=== PATIENT | male | born 1960 | race Hispanic/Latino ===

== ENCOUNTER 2017-08-25 12:22 | Inpatient (IN) | payer OTHER ==
[~2017-08-25] VITALS: Ht 180.3 cm; Wt 149.5 kg
[2017-08-25 13:19] LABS: BASOPHILS % (AUTO) 0.5 % (0.0-5.0); EOSINOPHILS % (AUTO) 2.3 % (0.0-8.0); HEMATOCRIT 50.5 % (42-54); INR 0.95 (0.85-1.15); LYMPHOCYTES % (AUTO) 25.7 % (21.0-51.0); MEAN CORPUSCULAR HEMOGLOBIN 31.2 pg (27.0-33.0); MEAN CORPUSCULAR HGB CONC 33.7 g/dL (32.0-36.0); MEAN CORPUSCULAR VOLUME 92.5 fL (79-99); MONOCYTES % (AUTO) 9.1 % (3.0-13.0); NEUTROPHILS % (AUTO) 62.4 % (40.0-77.0); NUCLEATED RED BLOOD CELLS 0.1 % (0.0-0.19); PARTIAL THROMBOPLASTIN TIME 26.6 SEC (26.3-35.5); PLATELET COUNT (AUTO) 171 K/uL (130-400); RED BLOOD CELL COUNT(AUTO) 5.46 MIL/uL (4.50-6.20); RED CELL DISTRIBUTION WIDTH 13.9 % (11.0-15.5); WHITE BLOOD COUNT (AUTO) 9.3 K/uL (4.8-10.8)
[2017-08-25 14:09] LABS: CREATININE 0.8 mg/dL (0.5-1.5); POTASSIUM 3.3 mmol/L (3.5-5.1)
[2017-08-25 14:14] LABS: ALBUMIN 3.6 g/dL (3.5-5.0); BILIRUBIN,TOTAL 0.3 mg/dL (0.2-1.0); TOTAL PROTEIN, SERUM 6.7 g/dL (6.0-8.3)
[2017-08-25 14:25] LABS: CREATINE KINASE MB 1.3 ng/mL (0.5-3.6)
[2017-08-25] MEDS ORDERED: NITROGLYCERIN 1GM/1 INCH PACKET TD ONE (14:56)
[2017-08-25 15:55] VITALS: BP 145/108
[2017-08-25] MEDS ORDERED: AMLO10TA2 PO (17:25)
[2017-08-25] MEDS ORDERED: ISOS30TA6 PO (17:25)
[2017-08-25] MEDS ORDERED: GLIP10TA9 PO (17:25)
[2017-08-25] MEDS ORDERED: PRAV40TA3 PO (17:25)
[2017-08-25 19:37] VITALS: BP 151/73
[2017-08-25 21:26] LABS: CREATINE KINASE, TOTAL 137 U/L (21-232); MYOGLOBIN 40 ng/mL (10-92); TROPONIN I < 0.04 ng/mL (0.00-0.06)
[2017-08-25] MEDS ORDERED: GLUCAGON 1MG KIT 1 MG ML IM PRN (23:30)
[2017-08-25] MEDS ORDERED: ZOLPIDEM TARTRATE 5 MG TAB PO PRN (23:30)
[2017-08-25] MEDS ORDERED: GUAIFENESIN-DM 200/20 MG 10 ML PO PRN (23:30)
[2017-08-25] MEDS ORDERED: HYDRALAZINE HCL 20 MG/ML VIAL IV PRN (23:30)
[2017-08-25] MEDS ORDERED: ONDANSETRON HCL MDV 20ML 2 MG/ML VIAL IV PRN (23:30)
[2017-08-25] MEDS ORDERED: POTASSIUM CHLORIDE 20MEQ/100ML 100 ML IV PRN ×2 (23:30)
[2017-08-25] MEDS ORDERED: POTASSIUM CHLORIDE 20 MEQ ERTAB PO PRN ×2 (23:30)
[2017-08-25] MEDS ORDERED: POTASSIUM CHLORIDE 10% ELIXIR 20 MEQ/15 ML UDCUP PO PRN ×2 (23:30)
[2017-08-25] MEDS ORDERED: ACETAMINOPHEN 325 MG TAB PO PRN ×2 (23:30)
[2017-08-25] MEDS ORDERED: DEXTROSE 50%-WATER 50 ML DISP.SYRIN IV PRN (23:30)
[2017-08-25] MEDS ORDERED: NITROGLYCERIN 0.4 MG SL TAB SL PRN (23:30)
[2017-08-25] MEDS ORDERED: LIDOCAINE HCL-MPF 1% 2ML VIAL IVP PRN ×2 (23:30)
[2017-08-25 23:36] VITALS: BP 120/81
[2017-08-25] MEDS: NITROGLYCERIN 1GM/1 INCH PACKET TD SCH (23:57)
[2017-08-26 03:41] VITALS: BP 160/99
[2017-08-26 04:26] LABS: HEMOGLOBIN A1C 7.3 % (4.0-6.0); INR 0.97 (0.85-1.15); PROTHROMBIN TIME 10.2 SEC (9.6-11.6)
[2017-08-26] MEDS: NITROGLYCERIN 1GM/1 INCH PACKET TD SCH ×3 (05:06→23:36)
[2017-08-26] MEDS: INSULIN HUMULIN R 100 UNIT/ML 3ML SQ SCH ×4 (05:32→20:37)
[2017-08-26 07:00] VITALS: BP 146/93
[2017-08-26 08:27] LABS: CHOLESTEROL 134 mg/dL (<200); HDL CHOLESTEROL 41 mg/dL (29-71); LDL DIRECT 82 mg/dL (0-99); TRIGLYCERIDES 69 mg/dL (30-200)
[2017-08-26] MEDS ORDERED: METOPROLOL TARTRATE 25 MG TAB PO SCH (09:00)
[2017-08-26] MEDS: ENOXAPARIN SODIUM 40 MG/0.4 ML SYRINGE SQ SCH (09:12)
[2017-08-26] MEDS: PANTOPRAZOLE SODIUM 40 MG TABLET.DR PO SCH (09:12)
[2017-08-26] MEDS: ASPIRIN 325 MG TABLET PO SCH (09:12)
[2017-08-26 11:00] VITALS: BP_SYST 127; BP_SYST 139; BP_DIAS 78; BP_DIAS 80
[2017-08-26 16:00] VITALS: BP 127/78
[2017-08-26 19:25] VITALS: BP 125/60
[2017-08-26] MEDS: ATORVASTATIN CALCIUM 10 MG TABLET PO SCH (20:29)
[2017-08-26] MEDS: GLIPIZIDE 5 MG TABLET PO SCH (20:29)
[2017-08-26 23:46] VITALS: BP 146/75
[2017-08-27 04:16] VITALS: BP 142/82
[2017-08-27] MEDS: INSULIN HUMULIN R 100 UNIT/ML 3ML SQ SCH ×4 (06:00→21:00)
[2017-08-27] MEDS: NITROGLYCERIN 1GM/1 INCH PACKET TD SCH ×3 (06:53→21:51)
[2017-08-27 07:00] VITALS: BP 150/72
[2017-08-27] MEDS: PANTOPRAZOLE SODIUM 40 MG TABLET.DR PO SCH (08:29)
[2017-08-27] MEDS: ISOSORBIDE MONO 30MG TAB SR PO SCH (08:29)
[2017-08-27] MEDS: GLIPIZIDE 5 MG TABLET PO SCH ×2 (08:30→21:50)
[2017-08-27] MEDS: AMLODIPINE BESYLATE 5 MG TAB PO SCH (08:30)
[2017-08-27] MEDS: ASPIRIN 325 MG TABLET PO SCH (08:30)
[2017-08-27] MEDS: ENOXAPARIN SODIUM 40 MG/0.4 ML SYRINGE SQ SCH (08:30)
[2017-08-27 11:00] VITALS: BP 108/64
[2017-08-27 16:00] VITALS: BP 116/74
[2017-08-27 19:44] VITALS: BP 127/87
[2017-08-27] MEDS: ATORVASTATIN CALCIUM 10 MG TABLET PO SCH (21:50)
[2017-08-27 23:36] VITALS: BP 141/62
[2017-08-28] VITALS (9 sets, daily range): BP systolic 107–135; BP diastolic 69–81
[2017-08-28 04:28] LABS: CREATININE 0.8 mg/dL (0.5-1.5); POTASSIUM 4.2 mmol/L (3.5-5.1)
[2017-08-28 04:33] LABS: INR 0.95 (0.85-1.15); PARTIAL THROMBOPLASTIN TIME 29.4 SEC (26.3-35.5)
[2017-08-28] MEDS ORDERED: NITROGLYCERIN 5 MG/ML 10 ML VIAL IV ONE (07:17)
[2017-08-28] MEDS ORDERED: HEPARIN SODIUM 1000UNIT/ML 10ML VIAL ONE (07:17)
[2017-08-28] MEDS ORDERED: IOPAMIDOL-370 100 ML VIAL IV ONE (07:17)
[2017-08-28] MEDS ORDERED: ISOVUE-370 50ML VIAL IV ONE (07:18)
[2017-08-28] MEDS ORDERED: LIDOCAINE HCL 2% 20ML ONE (07:18)
[2017-08-28] MEDS: NITROGLYCERIN 1GM/1 INCH PACKET TD SCH (07:23)
[2017-08-28] MEDS: INSULIN HUMULIN R 100 UNIT/ML 3ML SQ SCH ×2 (07:30→11:30)
[2017-08-28] MEDS ORDERED: OMEP40CA37 PO (08:14)
[2017-08-28] MEDS ORDERED: GLUCAGON 1MG KIT 1 MG ML IM PRN (08:15)
[2017-08-28] MEDS ORDERED: DEXTROSE 50%-WATER 50 ML DISP.SYRIN IV PRN (08:15)
[2017-08-28] MEDS: ENOXAPARIN SODIUM 40 MG/0.4 ML SYRINGE SQ SCH (08:48)
[2017-08-28] MEDS: ASPIRIN 325 MG TABLET PO SCH (08:51)
[2017-08-28] MEDS: AMLODIPINE BESYLATE 5 MG TAB PO SCH (08:51)
[2017-08-28] MEDS: ISOSORBIDE MONO 30MG TAB SR PO SCH (08:51)
[2017-08-28] MEDS: GLIPIZIDE 5 MG TABLET PO SCH (08:51)
[2017-08-28] MEDS: PANTOPRAZOLE SODIUM 40 MG TABLET.DR PO SCH (08:51)
== END 2017-08-28 13:30 | disposition home or self-care (01) | DRG 287 ==
LOC: EDH 12:22 → OBSVTOIN 14:48 → EDHIP 14:48 → 2AH 15:53
PROVIDERS: ADMIT Family Medicine; ATTEND Family Medicine
PROC: 4A023N7 Measurement of Cardiac Sampling and Pressure, Left Heart, Percutaneous Approach (ICD-10-PCS; principal; 2017-08-28)
PROC: B2111ZZ Fluoroscopy of Multiple Coronary Arteries using Low Osmolar Contrast (ICD-10-PCS; 2017-08-28)
PROC: B2151ZZ Fluoroscopy of Left Heart using Low Osmolar Contrast (ICD-10-PCS; 2017-08-28)
DX: I25.110 Atherosclerotic heart disease of native coronary artery with unstable angina pectoris (principal); E66.01 Morbid (severe) obesity due to excess calories; I24.9 Acute ischemic heart disease, unspecified; Z68.42 Body mass index [BMI] 45.0-49.9, adult; I45.2 Bifascicular block; E78.5 Hyperlipidemia, unspecified; G47.30 Sleep apnea, unspecified; R94.39 Abnormal result of other cardiovascular function study; I10 Essential (primary) hypertension; E11.9 Type 2 diabetes mellitus without complications; Z88.8 Allergy status to other drugs, medicaments and biological substances; Z82.49 Family history of ischemic heart disease and other diseases of the circulatory system
CPT/HCPCS: 36415; 71045; 80048; 80053; 80061; 82550; 82553; 82948; 83036; 83874; 84443; 84484; 85025; 85378; 85610; 85730; 93005; 93458; C1760; C1894; C9113; J1644; J1650; J3490; Q9967